=== PATIENT | male | born 1985 | race Caucasian/White ===

== ENCOUNTER → 2023-07-13 | Outpatient (CLI) | payer OTHER, SELFPAY ==
[2023-07-13 12:37] LABS: Absolute Lymphocyte Count 2.25 X10^3/uL (0.83-4.51); Absolute Neutrophil Count 3.6 X10^3/uL (2.0-7.7); Basophil# 0.03 X10^3/uL; Basophil% 0.5 % (0-1); Eosinophil# 0.06 X10^3/uL; Eosinophils% 0.9 % (0-5); Hematocrit 45.1 % (40-54); Hemoglobin 15.3 g/dL (13.0-16.5); Lymphocyte # 2.25 X10^3/ul (0.83-4.51); Lymphocyte % 35.4 % (19-41); Mean Corp Hgb Conc 33.9 g/dL (32-36); Mean Corpuscular Hgb 30.4 pg (27.0-32.0); Mean Corpuscular Volume 89.7 fL (80-94); Mean Platelet Vol. 9.5 fl (6.2-12.0); Monocyte# 0.45 X10^3/uL; Monocyte% 7.1 % (0-10); NRBC Flagged by Analyzer 0 % (0-5); Neutrophil # 3.55 X10^3/uL (2.7-7.7); Neutrophil % 55.8 % (47-70); Platelet Count 278 K/mm3 (150-450); RBC Distribution Width CV 12.1 % (11.6-14.6); RBC Distribution Width SD 39.3 fl (35.1-43.9); Red Blood Count 5.03 M/mm3 (4.6-6.2); White Blood Count 6.4 K/mm3 (4.4-11.0)
[2023-07-13 12:53] LABS: Vitamin B12 419 pg/mL (211-911); Vitamin D,25 Hydroxy 31.1 ng/mL
[2023-07-13 13:00] LABS: AST(SGOT) 21 U/L (15-37); Alanine Aminotransfer ALT/SGPT 37 U/L (16-61); Albumin, Serum 3.9 g/dL (3.2-5.0); Alkaline Phosphatase 93 U/L (45-117); Anion Gap 5 (5-15); BUN 8 mg/dL (7-18); Calcium,Total 8.8 mg/dL (8.5-10.1); Chloride 107 mmol/L (98-107); Cholesterol 138 mg/dL (200); EST Glomerular Filtration Rate 89 mL/min (>60); Est Glom Filt Rate - Afr Amer 107 mL/min (>60); Globulin 4.1 g/dL (2.2-4.2); Glucose 105 mg/dL (74-106); High Density Lipoprotein 29 mg/dL; Potassium 4.3 mmol/L (3.5-5.1); Sodium Level 139 mmol/L (136-145); T4 Free Direct 1.19 ng/dL (0.76-1.46); Thyroid Stim Hormone (TSH) 1.46 uIU/mL (0.358-3.74); Triglycerides 128 mg/dL; Very Low Density Lipoprotein 26 mg/dL (5-40)
[2023-07-14 15:16] LABS: Hemoglobin A1c 5.6 % (3.8-5.6)
[2023-07-15 15:07] LABS: Anti-Thyroglobulin AB < 1.0 IU/mL (0.0-0.9); Thyroglobulin, Serum Qt. 27.6 ng/mL (1.4-29.2); Thyroid Peroxidase AB 13 IU/mL (0-34); Thyroid Stim Immunoglob <0.10 IU/L (0.00-0.55)
== END | disposition home or self-care (01) ==
LOC: MFPLAB 10:27
PROVIDERS: PCP Family Medicine; Visit Provider Family Medicine
DX: R53.83 Other fatigue (principal); E66.9 Obesity, unspecified; R73.09 Other abnormal glucose
CPT/HCPCS: 36415; 80053; 80061; 82306; 82607; 83036; 84432; 84439; 84443; 84445; 85025; 86376; 86800

== ENCOUNTER → 2023-07-19 | Outpatient (CLI) | payer OTHER, SELFPAY ==
--- NOTE | 2023-07-19 16:58 | US_ITS ---
STUDY: THYROID ULTRASOUND REASON FOR EXAM: Male, 38 years old. THYROMEGALY TECHNIQUE: Ultrasound evaluation of the thyroid was performed with real-time and static burch-scale imaging. COMPARISON: None. FINDINGS: RIGHT LOBE: The right lobe of the thyroid gland measures 7.1 x 2.7 x 2.1 cm. There is a heterogeneous echotexture. Nodule 1:13 x 7 x 11 mm solid hypoechoic wider than tall smoothly marginated nodule and no echogenic foci (TR 4) in the mid right lobe and follow-up ultrasound is recommended in 1 year. Nodule 2:8 x 3 x 7 mm solid hypoechoic wider than tall smoothly marginated nodule with no echogenic foci (TR 4) in the anterior right lobe consistent with an adenoma. LEFT LOBE: The left lobe of the thyroid gland measures 7.4 x 2.6 x 2.2 cm. There is a heterogeneous echotexture. There are no demonstrated solid, cystic or complex lesions. ISTHMUS: The isthmus measures 2 mm thick. . The regional lymph nodes are normal. US/Thyroid IMPRESSION: Thyroiditis with a dominant nodule right lobe and follow-up ultrasound is recommended in 1 year. Electronically Signed: Seymour Odonnell MD at 19:44 EDT ,
== END | disposition home or self-care (01) ==
LOC: US 16:57
PROVIDERS: PCP Family Medicine; Referring Provider Family Medicine; Visit Provider Family Medicine
DX: E01.0 Iodine-deficiency related diffuse (endemic) goiter (principal)
CPT/HCPCS: 76536